=== PATIENT | female | born 1980 | race Caucasian/White ===

== ENCOUNTER 2018-09-24 19:14 | Emergency (ER) | payer MEDICAID ==
--- NOTE | 2018-09-24 19:25 | Emergency Department Record ---
History of Present Illness - General Chief Complaint: Cough Stated Complaint: chest congestion Time Seen by Provider: 09/24/18 19:23 Source: Patient Mode of Arrival: Ambulatory Limitations: No limitations - History of Present Illness Initial Comments: 37 yo female presents to ED for evaluation of non-productive cough symptoms and pharyngeal drainage for the past several days. Patient low-grade fevers at home , denies health problems at her baseline. Patient reports that her boss told her to come to the ED for evaluation before coming back to work. Complaint: Cough Onset/Timin -: Days(s) Severity: Moderate Consistency: Intermittent Improves With: Nothing Worsens With: Nothing Associated Symptoms: Denies other symptoms - Related Data Previous Rx's Medication Instructions Recorded Albuterol Sulfate [Proair Hfa] 1 - 2 puff IH .EVERY 4-6 HOURS PRN 09/24/18 #1 inhaler Prednisone [Prednisone 20Mg] 20 mg PO BID #14 tab 09/24/18 Allergies Allergy/AdvReac Type Severity Reaction Status Date / Time cephalexin monohydrate Allergy Severe ANAPHYLAXIS Verified 09/24/18 19:26 [From Keflex] Review of Systems Constitutional: Reports: Fever. Denies: Chills, Malaise Eyes: Denies: Eye discharge, Eye pain ENT: Denies: Congestion, Ear pain, Epistaxis Respiratory: Reports: Cough. Denies: Dyspnea Cardiovascular: Denies: Chest pain, Dyspnea on exertion Endocrine: Denies: Fatigue, Heat or cold intolerance Gastrointestinal: Denies: Abdominal pain, Nausea, Vomiting Genitourinary: Denies: Incontinence, Retention Musculoskeletal: Denies: Arthralgia, Back pain, Gout, Joint swelling Skin: Denies: Bruising, Change in color Neurological: Denies: Abnormal gait, Confusion, Headache, Seizure Psychiatric: Denies: Anxiety Hematological/Lymphatic: Denies: Anemia, Blood Clots Physical Exam - General General Appearance: Alert, Oriented x3, Cooperative, Mild distress Limitations: No limitations - Head Head exam: Atraumatic, Normocephalic, Normal inspection Head exam detail: negative: Abrasion, Contusion, Falcon's sign, General tenderness, Hematoma, Laceration - Eye Eye exam: Normal appearance. negative: Conjunctival injection, Periorbital swelling, Periorbital tenderness, Scleral icterus - ENT Ear exam: negative: Auricular hematoma, Auricular trauma Nasal Exam: negative: Active bleeding, Discharge, Dried blood, Foreign body Mouth exam: negative: Drooling, Laceration, Muffled voice, Tongue elevation - Neck Neck exam: Normal inspection. negative: Meningismus, Tenderness - Respiratory Respiratory exam: Decreased breath sounds. negative: Rales, Respiratory distress, Rhonchi, Stridor - Cardiovascular Cardiovascular Exam: Regular rate, Normal rhythm, Normal heart sounds - GI/Abdominal GI/Abdominal exam: Soft. negative: Rebound, Rigid, Tenderness - Rectal Rectal exam: Deferred - exam: Deferred - Extremities Extremities exam: Normal inspection. negative: Calf tenderness, Pedal edema, Tenderness - Back Back exam: Denies: CVA tenderness (R), CVA tenderness (L) - Neurological Neurological exam: Alert, Normal gait, Oriented X3 - Psychiatric Psychiatric exam: Normal affect, Normal mood - Skin Skin exam: Normal color. negative: Abrasion Type of lesion: negative: abrasion Course Vital Signs 09/24/18 19:20 Temperature 97.8 F Pulse Rate [ 84 Pulse Ox Probe] Respiratory 20 Rate Blood Pressure 134/100 [Left Arm] Pulse Ox 97 - Reevaluation(s) Reevaluation #1: 09/24/18 19:32 Patient was seen and examined, overall well appearing without evidence for bacterial infection. Symptoms appear c/w acute bronchitis. Will treat with Albuterol and Prednisone as directed. Patient agrees with the plan of care as directed. Disposition Disposition: Discharge Clinical Impression: Bronchitis Disposition: Home, Self-Care Condition: (2) Stable Instructions: Acute Bronchitis (ED) Additional Instructions: Return to ED if your symptoms worsen or if you have any concerns. Prednisone and Albuterol as directed. Follow-up with your family doctor in 1-3 days as directed. Prescriptions: Albuterol Sulfate [Proair Hfa] 1 - 2 puff IH .EVERY 4-6 HOURS PRN #1 inhaler PRN Reason: Difficulty In Breathing Prednisone [Prednisone 20Mg] 20 mg PO BID #14 tab Forms: Patient Portal Access Time of Disposition: 19:28 Quality - Quality Measures Quality Measures: N/A - Blood Pressure Screening Does Patient Have Any of the Following: No Blood Pressure Classification: Hypertensive Reading Systolic Measurement: 134 Diastolic Measurement: 100 Screening for High Blood Pressure: < First Hypertensive BP, F/U Documented > [ G8950] First Hypertensive Follow-up Interventions: Referral to alternative/primary care provider.
== END 2018-09-24 19:44 | disposition home or self-care (01) ==
LOC: ER 19:14
DX: J20.9 Acute bronchitis, unspecified (principal)
CPT/HCPCS: 99282

== ENCOUNTER 2018-11-16 10:30 | Day surgery (SDC) | payer MEDICAID ==
[~2018-11-16 10:30] MED LIST: ACETAMINOPHEN 1,000 MG/100 ML BTL IV ONE
[2018-11-16] MEDS ORDERED: LIDOCAINE 2% MDV (20MG/ML) 20ML VIAL IV ONE (10:31)
[2018-11-16] MEDS ORDERED: ONDANSETRON HCL IV 4 MG/2 ML VIAL IVP ONE (10:31)
[2018-11-16] MEDS ORDERED: KETOROLAC 30 MG/ML VIAL IVP ONE (10:31)
[2018-11-16] MEDS ORDERED: BUPIVACAINE 0.25% W/EPI MPF 30ML VIAL IVP ONE (10:31)
[2018-11-16] MEDS ORDERED: FENTANYL PF 100MCG/2ML VIAL IV ONE (10:31)
[2018-11-16] MEDS ORDERED: PROPOFOL 10 MG/ML VIAL IV ONE (10:31)
[2018-11-16] MEDS ORDERED: MIDAZOLAM HCL 2MG/2ML VIAL IV ONE (10:31)
[2018-11-16] MEDS ORDERED: SEVOFLURANE 250 ML INH ONE (10:31)
--- NOTE | 2018-11-17 00:06 | Operative Note ---
DATE OF SURGERY: 11/16/2018 SURGEON: NICOL MATUTE D.O. REFERRING PROVIDER: TAMI SANCHEZ NP PREOPERATIVE DIAGNOSES: 1. TORN MEDIAL MENISCUS RIGHT KNEE. 2. CHONDROMALACIA RIGHT KNEE. POSTOPERATIVE DIAGNOSES: 1. TORN LATERAL MENISCUS RIGHT KNEE. 2. CHONDROMALACIA LATERAL FEMORAL CONDYLE, LATERAL TIBIAL PLATEAU, MEDIAL FEMORAL CONDYLE, PATELLA, AND TROCHLEA RIGHT KNEE. OPERATIVE PROCEDURES: 1. ARTHROSCOPIC PARTIAL LATERAL MENISCECTOMY RIGHT KNEE. 2. ARTHROSCOPIC CHONDROPLASTY LATERAL FEMORAL CONDYLE, LATERAL TIBIAL PLATEAU, MEDIAL FEMORAL CONDYLE, PATELLA, AND TROCHLEA OF THE RIGHT KNEE. DESCRIPTION: This 38-year-old female was taken to the Operating Room and placed in the supine position on the operating room table, where general anesthesia was induced. The right lower extremity was elevated. It was exsanguinated and the tourniquet inflated to 300 mmHg. Arthroscopic knee de los santos applied. Right knee prepped with Hibiclens and draped in the usual sterile fashion. An inferior lateral portal was established with a 4 mm arthroscope and initial evaluation of the joint demonstrated degenerative changes of the patellofemoral articulation with grade 2 changes noted on the trochlea as well as on the median ridge and medial facet of the patella. These areas were probed and found to be unstable. A rotating shaver was used to perform chondroplasty to stabilize the articular cartilage there. The medial compartment was entered and grade 2 chondromalacia of the medial femoral condyle representing approximately two-thirds of the articulating surface of the medial femoral condyle with grade 2 changes. This was shaved with the rotating shaver to remove unstable fragments. The medial meniscus was probed and found to be normal. The intercondylar notch was examined and found to be normal. 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 A tear of the lateral meniscus was also present, a degenerative-type tear with horizontal cleavage components. This tear extended from approximately the 8 o'clock position all the way around to the posterior horn. Utilizing the basket forceps and rotating shaver, we resected unstable fragments of the meniscus and then re-probed and confirmed stability of the lateral meniscus. The articular cartilage of the lateral compartment was smoothed with the rotating shaver. The wound was then copiously irrigated. All areas were reexamined. No additional findings were present. The joint was suctioned. The instruments were removed. Portals infiltrated with 0.25% Marcaine with Epinephrine. Sterile dressings applied, tourniquet and knee de los santos released, and the patient taken to the Recovery Room in satisfactory condition. GROSS PATHOLOGY: This patient demonstrated advanced degenerative disease of the lateral compartment and patellofemoral joint and medial compartment as described, and complex tear of the posterior horn and body of the lateral meniscus. JOB NUMBER: [id number] [facility]
== END 2018-11-16 14:20 | disposition home or self-care (01) ==
LOC: SUR 10:30
PROVIDERS: ATTEND Orthopaedic Surgery
DX: S83.271A Complex tear of lateral meniscus, current injury, right knee, initial encounter (principal); M94.261 Chondromalacia, right knee; M79.7 Fibromyalgia; K21.9 Gastro-esophageal reflux disease without esophagitis
CPT/HCPCS: 29881; 01400; 81025; J1885; J2405; J3010

== ENCOUNTER 2019-06-19 12:31 | Emergency (ER) | payer MEDICAID ==
--- NOTE | 2019-06-19 13:01 | Emergency Department Record ---
History of Present Illness - General Chief complaint: Pain Stated complaint: KNEE PAIN Time Seen by Provider: 06/19/19 12:43 Source: Patient, EMS Mode of Arrival: EMS Limitations: No limitations - History of Present Illness Initial comments: The patient is here due to multiple complaints. She went to bed last night at around midnight and was feeling well. During the night she woke up and had mild L arm and hand numbness. The patient then woke up at 10:30 am today and her L forearm and hand were more numb and she also had numbness to both sides of her face. The L hand then developed spams along with the numbness. The patient denied any WOLFE, speech problems, CP, SOB, or visual changes. She then tried to drive here to [facility], [place] but had to parts puller on the road and call 911. Per EMS she then complained of CP and R knee pain but she denies that now. EMS did relay that she did seem to be hyperventilating at one point. The patient does have a hx of chronic pain and is not out of any medicines. MD Complaint: Other Onset/Timin -: Days(s) Quality: Other Consistency: Constant Improves with: Nothing Worsens with: Nothing Associated Symptoms: Denies other symptoms - Related Data Allergies Allergy/AdvReac Type Severity Reaction Status Date / Time cephalexin monohydrate Allergy Severe ANAPHYLAXIS Unverified 05/01/19 13:11 [From [place]] Travel Screening - Travel/Exposure Within Last 30 Days Have you traveled within the last 30 days?: No Review of Systems Constitutional: Denies: Chills, Fever Eyes: Denies: Eye discharge ENT: Denies: Congestion Respiratory: Denies: Cough, Dyspnea Cardiovascular: Denies: Chest pain Endocrine: Denies: Fatigue Gastrointestinal: Denies: Nausea Genitourinary: Denies: Dysuria Musculoskeletal: Denies: Arthralgia Skin: Denies: Bruising Past Medical History - SOCIAL HISTORY Smoking Status: Never smoker - RESPIRATORY Hx Respiratory Disorders: Yes Hx Bronchitis: Yes (nothing recent) - CARDIOVASCULAR Hx Cardio Disorders: No - NEURO Hx Neuro Disorders: No - GI Hx GI Disorders: Yes Hx Reflux: Yes - Hx Genitourinary Disorders: No - ENDOCRINE Hx Endocrine Disorders: No - MUSCULOSKELETAL Hx Musculoskeletal Disorders: Yes Hx Arthritis: Yes Hx Fibromyalgia: Yes Comment:: right knee pain - PSYCH Hx Psych Problems: No - HEMATOLOGY/ONCOLOGY Hx Hematology/Oncology Disorders: No Family Medical History Any Significant Family History?: Yes Hx Diabetes: Mother Hx Heart Disease: Mother Physical Exam - General General Appearance: Alert, Oriented x3, Cooperative, No acute distress - Head Head exam: Atraumatic, Normocephalic, Normal inspection - Eye Eye exam: Normal appearance, PERRL, EOMI - ENT Throat exam: Normal inspection. negative: Tonsillar erythema, Tonsillar exudate - Neck Neck exam: Normal inspection, Full ROM. negative: Tenderness - Respiratory Respiratory exam: Normal lung sounds bilaterally. negative: Respiratory distress - Cardiovascular Cardiovascular Exam: Regular rate, Normal rhythm, Normal heart sounds - GI/Abdominal GI/Abdominal exam: Soft, Normal bowel sounds. negative: Tenderness - Extremities Extremities exam: Full ROM, Normal capillary refill. negative: Normal inspection (The patient is holding the L hand in a flexor spasm position.), Tenderness - Back Back exam: Reports: Normal inspection - Neurological Neurological exam: Alert, CN II-XII intact, Motor sensory deficit (There is slight decreased sensation to the L forearm and hand and weakness in the same location. The patient also complains of subjective decreased sensation to both sides of her face but she has no facial droop or speech problems.), Normal gait, Oriented X3, Reflexes normal, Other (Neg Drift and Rhomberg.). negative: Abnormal gait, Altered Course Vital Signs 06/19/19 06/19/19 12:35 12:43 Temperature 98.3 F Pulse Rate [ 92 H Pulse Ox Probe] Respiratory 20 Rate Blood Pressure 134/58 [Right Arm] Pulse Ox 100 100 - Reevaluation(s) Reevaluation #1: The patient is resting comfortably at this time. Her L arm numbness and fingers spasms seem to be improving. 06/19/19 13:10 Reevaluation #2: The patient is presently sleeping in the room when I entered. After waking her up she states her symptoms have resolved and she no longer has any facial numbness or L arm numbness or spasms. I did explain to her that the CT and lab work did not demonstrate any reason for her symptoms. Because of that I did recommend an overnight hospital admission for monitoring and to R/O a TIA or mild CVA. I did explain to her that the risks of NOT doing that are the patient could go home and have a large stroke, become disabled and even . The patient fully understands and accepts the risks and presently has proper decision making capacity. She is to see her PCP later this week for recheck and to return to the ER for any worsening symptoms. 06/19/19 14:18 Medical Decision Making - Data Complexity MDM Data: Labs Ordered and/or Reviewed, X-Ray Ordered and/or Reviewed, EKG Ordered and/or Reviewed - Lab Data Result diagrams: 06/19/19 12:55 06/19/19 12:55 - EKG Data -: EKG Interpreted by Me EKG: No Acute Changes, Normal EKG - Radiology Data Radiology results: Report reviewed (Head CT: Neg per Rad.) Disposition Disposition: Discharge Clinical Impression: Numbness and tingling in left arm Disposition: Against Medical Advice Condition: (2) Stable Instructions: Paresthesia (ED) Additional Instructions: Please continue your regular medicines and please see your doctor later this week. Return to the ER for any return of your symptoms or any worsening numbness, or any weakness. Forms: Patient Portal Access Time of Disposition: 14:21 Quality - Quality Measures Quality Measures: N/A - Blood Pressure Screening View Details: Yes Does Patient Have Any of the Following: No Blood Pressure Classification: Hypertensive Reading Systolic Measurement: 141 Diastolic Measurement: 111 Screening for High Blood Pressure: < First Hypertensive BP, F/U Documented > [G8950] First Hypertensive Follow-up Interventions: Referral to alternative/primary care provider.
[2019-06-19 13:09] LABS: ABSOLUTE NEUTROPHIL COUNT 4.52; BASO % 0.3 % (0-6); GRAN % 75.2 % (47-80); HEMATOCRIT 36.8 % (35.0-47.0); LYMPH % 16.4 % (16-45); MEAN CELL VOLUME 106.1 fl (81-97); MEAN CORPUSCULAR HGB CONC 32.6 g/dl (32-36); MEAN PLATELET VOLUME 9.1 fl (7.4-10.4); MONO % 7.1 % (0-9); PLATELET COUNT 387 K/uL (130-400); RED BLOOD COUNT 3.47 M/uL (3.80-5.40); RED CELL DISTRIBUTION WIDTH 15.7 % (11.5-14.5)
[2019-06-19 13:11] LABS: MEAN CORPUSCULAR HEMOGLOBIN 34.5 pg (27-33)
[2019-06-19 13:18] LABS: BLOOD UREA NITROGEN 8 mg/dL (6-20); CREATININE 0.6 mg/dL (0.5-0.9); EST GLOMERULAR FILTRATION RATE > 60 mL/min
[2019-06-19 13:20] LABS: PROTHROMBIN TIME (PATIENT) 10.6 SECONDS (9.5-12.1)
[2019-06-19 13:21] LABS: GLUCOSE,RANDOM 82 mg/dL (74-109)
[2019-06-19 13:23] LABS: ALB/GLOB RATIO 1.5 (1.1-1.8); ALBUMIN 4.2 g/dL (4.0-5.0); ALT/SGPT 24 U/L (<33); AST/SGOT 53 U/L (10.0-35.0)
[2019-06-19 13:24] LABS: ALKALINE PHOSPHATASE 93 U/L (35-104)
[2019-06-19 13:35] LABS: THYROID STIMULATING HORMONE 1.15 uIU/mL (0.270-4.20)
--- NOTE | 2019-06-20 09:19 | CT SCAN REPORT ---
EXAM: CT OF THE HEAD WITHOUT CONTRAST HISTORY: HEADACHE WITH LEFT ARM TINGLING. TECHNIQUE: Routine noncontrast CT of the brain was obtained. Comparison: None. FINDINGS: The ventricles and subarachnoid spaces are normal in size. No area of abnormally increased or decreased attenuation is noted throughout the brain substance. The meza white interfaces are distinct. No abnormal extraaxial fluid collection. No acute skull abnormality. The left maxillary sinus appears small in size. The paranasal sinuses and mastoid air cells are clear. The orbits as visualized are unremarkable. IMPRESSION: NO ACUTE INTRACRANIAL ABNORMALITY IDENTIFIED. JOB NUMBER: [id number] [facility]
== END 2019-06-19 14:35 | disposition left against medical advice (07) ==
LOC: ER 12:31
DX: R20.2 Paresthesia of skin (principal); R51 Headache
CPT/HCPCS: 70450; 80053; 84443; 84484; 85025; 85610; 85730; 93005; 93010; 99284